=== PATIENT | male | born 1965 | race Caucasian/White ===

== ENCOUNTER 2020-09-08 09:09 | Emergency (ER) | payer OTHER, SELFPAY ==
[2020-09-08 09:15] VITALS: BP 141/86; PULSE 70; RESP 20; TEMP 36.5; O2SAT 98; BMI 28.1
--- NOTE | 2020-09-08 09:28 | HMH.EDUTC ---
[facility] [place] Clinical Impression: Exposure to COVID-19 virus Disposition: Home, Self-Care Condition on Discharge: Good Instructions: Preventing the Spread of Coronavirus Discharge Instructions Additional Instructions: Drink plenty of fluids. Take tylenol for pain or fever. Return if you begin to have difficulty breathing. Follow up with your regular doctor. GO TO THE ER FOR ANY WORSENING SYMPTOMS Referrals: Margarito De La Rosa APRN [Primary Care Provider] - Time of Disposition: 09:40 Medical Decision Making - Medical Records Medical records reviewed: No: I reviewed the patient's medical records. - Silviano Inquiry Pt receiving controlled substance: No Vital Signs: 09/08/20 09:15 09/08/20 09:49 Temperature 97.7 F 97.7 F Temperature Source Oral Pulse Rate 70 Pulse Rate [Right Brachial] 70 Respiratory Rate 20 20 Blood Pressure 141/86 H Blood Pressure [Right Arm] 141/86 H Blood Pressure Mean [Right Arm] 104 Blood Pressure Source [Right Arm] Manual Cuff/ Palpation Blood Pressure Position [Right Arm] Sitting 02 Sat by Pulse Oximetry 98 Oxygen Delivery Method Room Air Orders (Tests/Meds): ORDERS Category Date Time Status Covid-19 Nasal PCR ([facility]) Routine Lab 09/08/20 09:20 [place] [facility] [place] - General Stated complaint: covid test Time Seen by Provider: 09/08/20 09:28 - History of Present Illness Provider Complaint: He is here to get tested for covid-19 after being exposed approx 4 days ago. He denies any symptoms. - Related Data Allergies Allergy/AdvReac Type Severity Reaction Status Date / Time No Known Allergies Allergy Verified 09/08/20 09:40 [facility] History - Hepatitis A Screen Attestation statement:: This patient has been screened for Hepatitis A risk factors. I have reviewed the patient's past medical history: Yes ROS Obtained: Yes All systems reviewed & no additional complaints - Constitutional Constitutional: Reports system reviewed and no additional complaints, except as docu - Eyes Eyes: Reports system reviewed and no additional complaints, except as docu - ENT Ears, Nose, Mouth, and Throat: Reports system reviewed and no additional complaints, except as docu - Cardiovascular Cardiovascular: Reports system reviewed and no additional complaints, except as docu - Respiratory Respiratory: Yes system reviewed and no additional complaints, except as docu - Gastrointestinal Gastrointestingal: Reports: system reviewed and no additional complaints, except as docu Physical Exam - General General appearance: alert, in no apparent distress - Head Head exam: atraumatic, normocephalic, normal inspection - Eye Eye exam: Present: normal appearance, PERRL, EOMI - ENT ENT exam: Present: normal exam, normal oropharynx, mucous membranes moist, TM's normal bilaterally, normal external ear exam - Neck Neck exam: Present: normal inspection, full ROM, trachea midline. Absent: meningismus, lymphadenopathy - Chest Chest inspection: Present: normal inspection, symmetric chest wall rise. Absent: tenderness - Respiratory Respiratory exam: Present: normal lung sounds bilaterally. Absent: respiratory distress - Cardiovascular Cardiovascular exam: Present: regular rate, normal rhythm. Absent: JVD - Abdominal Exam Abdominal exam: Present: soft, normal bowel sounds. Absent: distention, tenderness, guarding - Extremities Exam Extremities exam: Present: normal inspection, full ROM, normal capillary refill. Absent: calf tenderness - Back Exam Back exam: Present: normal inspection. Absent: tenderness - Neurological Exam Neurological exam: Present: alert, oriented X3 - Psychiatric Psychiatric exam: Present: normal affect, normal mood - Skin Skin exam: Present: warm, dry, intact, normal color - Lymphatic Lymphatic Findings: no adenopathy
[2020-09-08 09:49] VITALS: BP 141/86; PULSE 70; RESP 20; TEMP 36.5; O2SAT 98
== END 2020-09-08 09:50 | disposition home or self-care (01) ==
PROVIDERS: Emergency Provider Family Medicine; PCP Nurse Practitioner Family
DX: Z20.822 Contact with and (suspected) exposure to COVID-19 (principal)
CPT/HCPCS: 99202; G0463; U0003

== ENCOUNTER 2023-03-08 02:18 | Emergency (ER) | payer BC, SELFPAY ==
[2023-03-08 02:29] VITALS: BP 131/88; PULSE 114; RESP 18; TEMP 36.4; O2SAT 97; BMI 27.3
[2023-03-08 02:30] VITALS: BMI 27.3
--- NOTE | 2023-03-08 02:31 | XR_ITS ---
PROCEDURE INFORMATION: Exam: XR Chest Exam date and time: 03/08/2023 2:28 AM Age: 57 years old Clinical indication: Shortness of breath; Additional info: Shortness of air TECHNIQUE: Imaging protocol: Radiologic exam of the chest. Views: 2 views. COMPARISON: No relevant prior studies available. FINDINGS: Lungs: Normal. Pleural spaces: Unremarkable. No pleural effusion. No pneumothorax. Heart/Mediastinum: Normal. Bones/joints: No acute abnormality. IMPRESSION: No acute findings.
--- NOTE | 2023-03-08 02:34 | ECG_ITS ---
APPROVED REPORT Exam: Resting ECG HR:111 bpm ECG Measurements Heart Rate 111 AXES WA 184 P 68 QRSd 121 QRS 3 QT 341 T 57 QTc 406 Conclusion SINUS TACHYCARDIA MODERATE INTRAVENTRICULAR CONDUCTION DELAY [110+ ms QRS DURATION] NONSPECIFIC ST ELEVATION [0.05+ mV ST ELEVATION] ABNORMAL RHYTHM ECG UNCONFIRMED REPORT Electronically signed by : Gerald Cuevas MD 03/09/2023 08:17:21
--- NOTE | 2023-03-08 02:36 | HMH.EDSOB ---
Discharge Plan Disposition Patient Disposition: Home, Self-Care Prescriptions Prescriptions: No Action pravastatin 10 mg Tablet 10 mg PO DAILY hydrochlorothiazide 12.5 mg Tablet 12.5 mg PO DAILY Referrals Follow up/Referrals: Conor Giang MD [Primary Care Provider] - See instructions Clinical Impressions Clinical Impression: Shortness of breath Instructions Patient Instructions: DI for Shortness of Breath Discharge ED Provider: Iesha (ED)Yaya Resp/SOB HPI General Chief Complaint: Shortness of Breath/Dyspnea Stated Complaint: SOA Time Seen by Provider: 03/08/23 02:35 Mode of Arrival: Ambulatory Source of Information: Patient, Spouse and Medical Record Limitations: No Limitations Description of Symptoms (Recalled from ER Triage Doc. by RN): pt c/o SOA ongoing for about an hour. pt denies chest pain or cough. pt states he feels like he can take a big breath but not release it. pt reports he has drank about 10 beers and a shot of whiskey today. History of Present Illness pt with sob tonight- no chest pain - no tob use no resp illness no sig risk for dvt /pul emboli MD Complaint: shortness of breath Onset (ago): hour(s) Severity: moderate Associated symptoms: denies other symptoms Treatment prior to arrival: none Related Data Home oxygen amount: none Home Medications Medication Instructions Recorded Confirmed hydrochlorothiazide 12.5 mg tablet 12.5 mg PO DAILY Hypertension 03/08/23 03/08/23 pravastatin 10 mg tablet 10 mg PO DAILY Cholesterol 03/08/23 03/08/23 Allergies Allergy/AdvReac Type Severity Reaction Status Date / Time No Known Allergies Allergy Verified 03/08/23 02:34 [facility] Disclaimer: The information contained in this section may have been updated after the patient was seen, as this information can be updated by other users. Social History (Updated 03/08/23 @ 02:35 by Carlee Farnsworth RN) Smoking Status: Never smoker alcohol intake: current current occupational status: other Travel in the last 8 weeks: None ROS Obtained: Yes All systems reviewed & no additional complaints except as documented Physical Exam General General appearance: alert Head Head exam: normocephalic Eye Eye exam: Present PERRL and EOMI ENT ENT exam: Present mucous membranes moist Neck Neck exam: Absent trachea midline Chest Chest inspection: Present normal inspection Respiratory Respiratory exam: Present normal lung sounds bilaterally; Absent respiratory distress Cardiovascular Cardiovascular exam: Present regular rate and systolic murmur; Absent rubs, gallop or clicks Abdominal Exam Abdominal exam: Present soft Extremities Exam Extremities exam: Present full ROM; Absent joint swelling or calf tenderness Neurological Exam Neurological exam: Present alert, oriented X3 and CN II-XII intact; Absent motor sensory deficit Psychiatric Psychiatric exam: Present normal affect Skin Skin exam: Absent rash Medical Decision Making Medical Records Medical records reviewed: Yes I reviewed the patient's medical records. Silviano Inquiry Pt receiving controlled substance: No Vital Signs: 03/08/23 02:29 03/08/23 05:30 03/08/23 05:30 Temperature 97.6 F 98.2 F Temperature Source Oral Pulse Rate 89 Pulse Rate [Left] 114 H Respiratory Rate 18 19 Blood Pressure 109/70 L Blood Pressure [Right Arm] 131/88 Blood Pressure Mean [Right Arm] 102 Blood Pressure Source [Right Arm] Automatic Cuff Blood Pressure Position [Right Arm] Sitting 02 Sat by Pulse Oximetry 97 Oxygen Delivery Method Room Air Room Air Lab Data Lab results reviewed: Yes I reviewed the patient's lab results. Lab Results 03/08/23 02:30: WBC 8.9, RBC 4.66, Hgb 14.3, Hct 42.6, MCV 91.4, MCH 30.6, MCHC 33.5, RDW 12.8, Plt Count 272, MPV 8.3, Neut % (Auto) 42.1, Lymph % (Auto) 48.0, Cloud % (Auto) 5.6, Eos % (Auto) 3.4, Baso % (Auto) 0.9, Neut # (Auto) 3.8, Lymph # (Auto) 4.3, Cloud # (Auto)
[2023-03-08 02:37] LABS: Basophils # 0.1 K/mm3 (0-0.2); Basophils % 0.9 % (0.1-2.0); Eosinophils # 0.3 K/mm3 (0.0-0.4); Eosinophils % 3.4 % (0.1-12.0); Hematocrit 42.6 % (42.0-52.0); Hemoglobin 14.3 g/dL (14.1-18.0); Lymphocytes # 4.3 K/mm3 (0.7-4.5); Mean Corpuscular HGB Conc 33.5 g/dL (31.8-35.4); Mean Corpuscular Hemoglobin 30.6 pg (27.0-31.2); Mean Corpuscular Volume 91.4 fl (80-94); Mean Platelet Volume 8.3 fl (7.4-10.4); Monocytes # 0.5 K/mm3 (0.1-1.0); Monocytes % 5.6 % (1.7-9.3); Neutrophils # 3.8 K/mm3 (1.8-7.8); Neutrophils % 42.1 % (37.0-80.0); Platelet Count 272 K/mm3 (142-424); Red Blood Count 4.66 M/mm3 (4.60-6.20); Red Cell Distribution Width 12.8 % (11.5-17.5); White Blood Count 8.9 K/mm3 (4.8-10.8)
--- NOTE | 2023-03-08 02:40 | PC.NURSE ---
BACK FROM RAD VIA WC AND TECH
[2023-03-08 02:42] LABS: Alanine Aminotransferase 43 U/L (12-78); Albumin Level 4.3 g/dl (3.5-5.0); Alkaline Phosphatase 60 U/L (38-126); Anion Gap 15.3 mEq/L (5-15); Aspartate Amino Transferase 44 U/L (17-59); Bilirubin,Indirect 0.4 mg/dL (0.0-0.9); Bilirubin,Total 0.4 mg/dl (0.2-1.3); Bilirubin,Unconjugated 0.3 mg/dL (0.0-1.1); Blood Urea Nitrogen 13 mg/dl (9-20); Calcium 8.6 mg/dl (8.4-10.2); Carbon Dioxide 27 mmol/L (22.0-30.0); Chloride 101 mmol/L (98-107); Creatinine Clearance Estimated 94 mL/min (50-200); Estimated Glomerular Filt Rate 77 ml/min (>60); GFR (African American) 93 ML/MIN (>60); Glucose 154 mg/dl (74-100); Potassium 3.3 mmoL/L (3.5-5.1); Sodium 140 mmol/L (136-145); Total Protein,Serum 7.1 g/dl (6.3-8.2)
[2023-03-08 02:46] LABS: Ethyl Alcohol 192 mg/dl (0-10)
[2023-03-08 02:55] LABS: NT Pro Brain Natriuretic Pep. 30.6 pg/mL (0-125)
[2023-03-08 02:57] LABS: Troponin I < 0.01 ng/ml (0.00-0.034)
[2023-03-08 02:59] LABS: T4 (Thyroxine) 6.8 ug/dl (5.53-11.0)
[2023-03-08 03:13] LABS: Thyroid Stimulating Hormone 2.72 uIU/mL (0.465-4.68)
--- NOTE | 2023-03-08 04:28 | PC.NURSE ---
checked on pt. no new complaints at this time. pt states, a few minutes ago I caught a big yawn and now I'm just fine.
[2023-03-08 05:30] VITALS: BP 109/70; PULSE 89; RESP 19; TEMP 36.8; O2SAT 95
[2023-03-08 05:35] LABS: Troponin I < 0.01 ng/ml (0.00-0.034)
== END 2023-03-08 05:30 | disposition home or self-care (01) ==
PROVIDERS: Emergency Provider Emergency Medicine; PCP Family Medicine
DX: R06.02 Shortness of breath (principal); R00.0 Tachycardia, unspecified
CPT/HCPCS: 71046; 80048; 80076; 83880; 84436; 84443; 84484; 85025; 93005; 96361; 96374; 96375; 99285

== ENCOUNTER 2024-11-29 08:18 | Day surgery (SDC) | payer BC, SELFPAY ==
[2024-11-25 11:52] VITALS: BMI 27.6
[2024-11-29 08:51] VITALS: BP 116/85; PULSE 74; RESP 16; TEMP 36.6; O2SAT 98
[2024-11-29] MEDS: LACTATED RINGERS 1000ML 1,000 ML 50 ML IV (08:56)
--- NOTE | 2024-11-29 09:02 | EXP.ANES.CKL ---
[facility] Disclaimer: The information contained in this section may have been updated after the patient was seen, as this information can be updated by other users. Medical History History of COVID-19 Hyperlipidemia Surgical History H/O knee surgery Family History Other No significant family history Social History Smoking Status: Never smoker alcohol intake: current substance use type: denies use current occupational status: employed Travel in the last 8 weeks: None [facility] Anesthesia Checklist Patient Identification Patient Identification: Arm Band Structural Data Admitted From: Home Planned Operative Procedure/s: Colonoscopy Consent for Planned Operative Procedure(s) Verified: Yes Verified Documents: Surgical Consent and History and Physical NPO Status Verified Time NPO: 04:30 (finished prep) Additional verifications Anesthesia Reactions: No Airway Assessment Mallampati Score:: Class II C-Spine Mobility Assessed: Yes TMJ Mobility Assessed: Yes Dentition: Good Dentition Neurological Assessment Level of Consciousness: Awake, Alert and Appropriate Anesthesia Plan Anesthesia Risk discussed: Yes Anesthesia Plan: Verified ASA Class: II Anesthesia Type: MAC
--- NOTE | 2024-11-29 09:10 | EXP.GEN.HP ---
HPI HPI HPI: This is a 59-year-old gentleman who presents for screening colonoscopy. Cologuard approximately 3 years ago reportedly negative. [facility] Disclaimer: The information contained in this section may have been updated after the patient was seen, as this information can be updated by other users. Medical History (Updated 11/29/24 @ 09:11 by Marquis Simon MD) History of COVID-19 Hyperlipidemia Surgical History H/O knee surgery Family History No significant family history Social History (Updated 11/29/24 @ 09:03 by Sal Young CRNA) Smoking Status: Never smoker alcohol intake: current substance use type: denies use current occupational status: employed Travel in the last 8 weeks: None Have you lived/traveled outside [place] in past 30 days?: No Contact w/someone who lives/traveled outside US past 30 days?: No Exposure to someone with infectious disease in past 14 days?: No Do you have a fever (greater than 100.4 F or 38 C)?: No Have you tested positive for COVID-19: No Exposed to someone with COVID-19 in past 14 days?: No Do you have a sore throat?: No Do you have a cough?: No Do you have any weakness?: No Are you experiencing any nausea/vomitting?: No Do you have any diarrhea?: No Are you experiencing any unusual bleeding?: No Do you have any muscle aches/pain?: No Do you have any abdominal pain?: No Are you experiencing loss of taste or smell?: No Review of Systems Review of Systems Review of systems:: pertinent systems reviewed and negative unless documented below Meds Home Medications and Allergies Home Medications ?Medication ?Instructions ?Recorded ?Confirmed ?Type hydrochlorothiazide 12.5 mg tablet 12.5 mg PO DAILY Hypertension 03/08/23 11/29/24 History pravastatin 10 mg tablet 10 mg PO DAILY Cholesterol 03/08/23 11/29/24 History cholecalciferol (vitamin D3) 1,250 1,250 mcg PO WEEKLY 11/25/24 11/29/24 History mcg (50,000 unit) capsule New Prescriptions to Start Prescriptions: Allergies Allergy/AdvReac Type Severity Reaction Status Date / Time No Known Allergies Allergy Verified 11/25/24 11:46 Exam Data for Last 24 hours Vital signs and Labs for Last 24 Hours: Temp Pulse Resp BP Pulse Ox O2 Del Method 97.8 F 74 16 116/85 98 Room Air 11/29/24 08:51 11/29/24 08:51 11/29/24 08:51 11/29/24 08:51 11/29/24 08:51 11/29/24 08:51 Constitutional Constitutional: no acute distress *Routine HEENT Exam Head: Present normocephalic Eye: Present EOMI ENT: Present mucous membranes moist *Routine Respiratory Exam Respiratory: Absent respiratory distress *Routine Cardiovascular Exam Cardiovascular: Present RRR *Routine Abdominal Exam Abdominal: Present soft *Routine Rectal Exam Rectal:: deferred *Routine Genitalia Exam Genitalia:: deferred Assessment and Plan *Assessment and plan (1) Encounter for screening colonoscopy: Status: Acute Category: Medical Code(s): Z12.11 - Encounter for screening for malignant neoplasm of colon Plan: Colonoscopy today I have discussed the risks and benefits including, but not limited to: Bleeding Infection Damage to surrounding tissue Inherent risks of sedation The patient agrees to proceed.
[2024-11-29 09:16] VITALS: O2SAT 98
--- NOTE | 2024-11-29 09:17 | P.PCN_ITS ---
Procedure: Date: 11/29/24 Patient Date of :: 1965 Procedure Performed:: Colonoscopy Indications:: Screening Performing Provider:: Marquis Simon MD Referring Provider:: . Sedation:: Monitored anesthesia care Procedure:: After informed consent was obtained the patient was taken to the endoscopy suite. Sedation ensued after the patient was transferred to the left lateral decubitus position. Pulse, blood pressure, and oxygen saturation were monitored throughout the procedure. Digital rectal exam revealed no significant abnormality. The colonoscope was placed in position. The entire colon was eval uated. The colonoscope was carefully removed and the patient was transferred to recovery in stable condition. Please see findings and specimens below for detail. Findings:: Bowel preparation moderate Significant spasticity/lack of relaxation Moderate tortuosity Sigmoid diverticulosis Hemorrhoidal cushions Specimens:: None Recommendations:: Repeat colonoscopy in 3-5 years secondary to moderate preparation, spasticity/lack of relaxation, and tortuosity. If repeat colonoscopy reveals no significant abnormality, timing of future colonoscopies will likely be extended. Complications:: No immediate Estimated blood obtained (mL): 0 Colonoscopy Component Colonoscopy Component Was a colonoscopy performed during today's procedure?: Yes Recommended follow up colonoscopy of at least 10 years?: No If no, follow up colonoscopy recommended in ___ years?: (See above) Reason for not recommending >/= 10 yr follow-up interval?: (See above)
[2024-11-29 09:41] VITALS: BP 118/79; PULSE 81; RESP 20; TEMP 36.4; O2SAT 93
[2024-11-29 09:51] VITALS: BP 113/65; PULSE 91; RESP 18; O2SAT 96
[2024-11-29 10:01] VITALS: BP 119/78; PULSE 94; RESP 18; O2SAT 96
== END 2024-11-29 10:08 | disposition home or self-care (01) ==
PROVIDERS: PCP Family Medicine; Visit Provider Surgery
PROC: 0DJD8ZZ Inspection of Lower Intestinal Tract, Via Natural or Artificial Opening Endoscopic (ICD-10-PCS; CPT 45378; principal; 2024-11-29 09:30)
DX: K57.30 Diverticulosis of large intestine without perforation or abscess without bleeding (principal); K64.9 Unspecified hemorrhoids; Z12.11 Encounter for screening for malignant neoplasm of colon
CPT/HCPCS: 45378; J7120